=== PATIENT | female | born 2000 | race Caucasian/White ===

== ENCOUNTER 2019-04-30 11:17 | Observation (INO) | payer OTHER, BC ==
[2019-04-27 16:32] VITALS: BMI 17.8
[2019-04-30] VITALS (12 sets, daily range): BP systolic 101–131; BP diastolic 49–77; PULSE 66–95; RESP 9–26; Ht 162.6 cm; Wt 46.4 kg
[~2019-04-30] VITALS: Ht 162.6 cm; Wt 46.4 kg
--- NOTE | 2019-04-30 10:51 | HPN ---
Date/Time of Note Date/Time of Note DATE: 04/30/19 TIME: 10:51 Interval H&P Admission Note Pt. seen H&P reviewed: No system changes GRAYSON HARO MD Apr 30, 2019 10:51
[~2019-04-30 11:17] MED LIST: CEFAZOLIN 2 GM/50 ML (PMX) 50 ML IVPB ONE; LACTATED RINGER'S 1,000 ML IV ONE
[2019-04-30] MEDS ORDERED: THROMBIN 5000 UNIT VIAL ONE (11:25)
[2019-04-30] MEDS ORDERED: GELATIN SIZE 100 SPONGE ONE (11:25)
[2019-04-30] MEDS ORDERED: POLYMYXIN/BACITRACIN 1L IRRIG ONE (11:25)
[2019-04-30] MEDS ORDERED: BUPIVACAINE 0.5%/EPI (SDV) 30 ML INJ ONE (11:25)
--- NOTE | 2019-04-30 11:31 | PREAC ---
Date/Time of Note Date/Time of Note DATE: 04/30/19 TIME: 11:30 Anesthesia Eval and Record Evaluation Time Pre-Procedure Interview DATE: 04/30/19 TIME: 11:30 Age 18 Sex female NPO: 8 hrs Preoperative diagnosis L5-S1 HNP Planned procedure L5-S1 microdiscectomy Past Medical History Past Medical History: None Surgery & Anesthesia Issues No known issue Meds Anticoagulation: No Beta Justino within 24 hr: No Reason Beta Justino not given: Pt. not on B-Justino No Active Prescriptions or Reported Meds Meds reviewed: Yes Allergies Coded Allergies: No Known Allergies (Verified Allergy, Unknown, 04/27/19) Allergies Reviewed: Yes Labs/Studies Labs Reviewed: Reviewed by anesthesiologist test: Negative Pre-procedure Exam Airway: Adequate mouth opening Mallampati: Mallampati IV Teeth: Normal Lung: Normal Heart: Normal ASA Physical Status ASA physical status: 1 Emergency: None Planned Anesthetic General/MAC: ETT Planned Pain Management Parenteral pain med Pre-operative Attestations Prior to commencing anesthesia and surgery, the patient was re-evaluated, there was verification of: *The patient's identity *The results of appropriate recent lab work and preoperative vital signs *The above evaluation not changing prior to induction *Anesthetic plan, risk benefits, alternative and complications discussed with patient/family; questions answered; patient/family understands, accepts and wishes to proceed. FRITZ LOPEZ MD Apr 30, 2019 11:31
[2019-04-30] MEDS ORDERED: PROPOFOL 20 ML ONE (11:40)
[2019-04-30] MEDS ORDERED: SUCCINYLCHOLINE CHLORIDE 100 MG/5 ML SYG IV ONE (11:40)
[2019-04-30] MEDS ORDERED: GLYCOPYRROLATE 0.4 MG INJ ONE (11:40)
[2019-04-30] MEDS ORDERED: MEPERIDINE 100 MG INJ ONE (11:40)
[2019-04-30] MEDS ORDERED: LIDOCAINE 2% (SDV) 5 ML INJ ONE (11:40)
[2019-04-30] MEDS ORDERED: ROCURONIUM 50 MG INJ ONE (11:40)
[2019-04-30] MEDS ORDERED: NEOSTIGMINE 3 MG/3 ML SYRINGE ONE (11:40)
[2019-04-30] MEDS ORDERED: CEFAZOLIN 1 GM INJ ONE (12:41)
[2019-04-30] MEDS ORDERED: ONDANSETRON 4 MG INJ ONE (12:41)
[2019-04-30] MEDS ORDERED: METOCLOPRAMIDE 10 MG INJ ONE (12:41)
[2019-04-30] MEDS ORDERED: ONDANSETRON 4 MG INJ IV PRN ×2 (13:30→15:00)
[2019-04-30] MEDS ORDERED: HYDROmorphONE 1 MG/5 ML IV SYRINGE IV PRN ×3 (13:30)
[2019-04-30] MEDS ORDERED: OXYCODONE/ACETAMINOPHEN (5/325) TAB PO PRN ×2 (13:30)
[2019-04-30] MEDS ORDERED: MIDAZOLAM 1 MG/ML 2 ML INJ IV PRN (13:30)
[2019-04-30] MEDS ORDERED: MEPERIDINE 25 MG INJ IV PRN (13:30)
[2019-04-30] MEDS ORDERED: METOCLOPRAMIDE 10 MG INJ IV PRN (13:30)
[2019-04-30] MEDS ORDERED: FENTAnyl 50 MCG/ML VIAL IV PRN ×2 (13:30)
[2019-04-30] MEDS ORDERED: DIPHENHYDRAMINE 50 MG INJ IV PRN (13:30)
[2019-04-30] MEDS ORDERED: BETAMET NA PHOS/AC(6 MG/ML) 5ML INJ ONE (14:11)
--- NOTE | 2019-04-30 14:35 | OPR ---
Date/Time of Note Date/Time of Note DATE: 04/30/19 TIME: 14:32 Operative Report Free Text/Dictation DATE OF OPERATION: 04/30/2019 PREOPERATIVE DIAGNOSES: Left sided L5-S1 disk herniation with S1 radiculopathy POSTOPERATIVE DIAGNOSES: Left sided L5-S1 disk herniation with S1 radiculopathy OPERATION PERFORMED: Left L5-S1 microdiscectomy SURGEON: Grayson Haro MD FISH NET STRINGER: MARCO Portillo ANESTHESIA: General endotracheal ESTIMATED BLOOD LOSS: 15 mL SURGICAL INDICATION: The patient is a 18 year-old female who presents with a history of left lower extremity pain and weakness. She was found to have a disc herniation which correlated well with her symptoms. The patient had failed conservative treatment. Risks, benefits, and alternatives to microdiscectomy were explained to the patient and they wished to proceed. Risks explained included but were not exclusive of bleeding, infection, cauda equina syndrome, nerve injury, dural tear, iatrogenic instability, recurrent disc herniation, fracture, vascular injury, bowel injury, stroke, heart attack and pulmonary embolism. DESCRIPTION OF TECHNIQUE: The patient was identified in the preoperative area and taken to the operating room. Rapid induction of general endotracheal anesthesia was performed. The patient was given 2 g of cefazolin for prophylaxis. The patient was then placed in the prone position on the Feng frame on a Alex flat top table with all prominences well padded. The back was prepped and draped in the usual sterile manner. Using a spinal needle and intraoperative fluoroscopy, the appropriate level was clearly identified (L5- S1). The skin was injected using 0.5% Marcaine with epinephrine. Longitudinal midline incision was then created using a 10 blade. Further dissection through soft tissue was performed using electrocautery down to the spinous processes. The dissection was taken down the left side of the lamina and over the facet joint capsule. A self-retaining retractor was applied. Again, intraoperative fluoroscopy confirmed the appropriate level. The microscope was brought into use for microdissection. A small portion of the caudal aspect of the cephalad lamina and medial facet was resected using a high-speed bur. A series of Kerrison rongeurs were then used to resect the ligamentum flavum. The left S1 pedicle was identified using a naeem. The dura and traversing nerve root were both directly visualized. These were retracted gently in a medial direction. Immediately, the extruded disc fragment was noted. The pseudo anulus was incised using an 15 blade. Several loose fragments of disk were removed. These were removed back to a stable portion of the disk. A nerve hook and a series of pituitaries were used to ensure removal of all loose fragments. The disk space was further pressurized using a using normal saline through a syringe to ensure that no loose fragments remained behind. Palpation with a ball-tip probe did not reveal any further stenosis. The traversing left S1 nerve root was noted to be significantly decompressed. Meticulous attention was paid towards hemostasis using FloSeal. Care was taken to remove all FloSeal prior to wound closure. The fascia was then closed using 0 Vicryl in an interrupted fashion. Subcutaneous tissue was closed using 2-0 Vicryl in an interrupted fashion. The skin was closed using a running 4-0 Monocryl stitch. The wound was dressed using Dermabond and a 4x4 sterile gauze. The patient was returned to the supine position. He was extubated immediately postoperatively and taken to the recovery room in stable condition. COMPLICATIONS: None. Procedure Date: Apr 30, 2019 Preoperative Diagnosis Left sided L5-S1 disk herniation with S1 radiculopathy Postoperative Diagnosis Left sided L5-S1 disk herniation with S1 radiculopathy Operation/Procedure Performed Left L5-S1 microdiscectomy Surgeon see signature line Forder Operator MARCO Portillo Anesthesia Type: general Estimated Blood Loss: 10 - 50 ml's Transfusion none Specimen L5-S1 disk Grafts/Implants none Complications none Pt Condition Post Procedure: stable Disposition: PACU Procedure Description DESCRIPTION OF TECHNIQUE: The patient was identified in the preoperative area and taken to the operating room. Rapid induction of general endotracheal anesthesia was performed. The patient was given 2 g of cefazolin for p rophylaxis. The patient was then placed in the prone position on the Feng frame on a Alex flat top table with all prominences well padded. The back was prepped and draped in the usual sterile manner. Using a spinal needle and intraoperative fluoroscopy, the appropriate level was clearly identified (L5- S1). The skin was injected using 0.5% Marcaine with epinephrine. Longitudinal midline incision was then created using a 10 blade. Further dissection through soft tissue was performed using electrocautery down to the spinous processes. The dissection was taken down the left side of the lamina and over the facet joint capsule. A self-retaining retractor was applied. Again, intraoperative fluoroscopy confirmed the appropriate level. The microscope was brought into use for microdissection. A small portion of the caudal aspect of the cephalad lamina and medial facet was resected using a high-speed bur. A series of Kerrison rongeurs were then used to resect the ligamentum flavum. The left S1 pedicle was identified using a naeem. The dura and traversing nerve root were both directly visualized. These were retracted gently in a medial direction. Immediately, the extruded disc fragment was noted. The pseudo anulus was incised using an 15 blade. Several loose fragments of disk were removed. These were removed back to a stable portion of the disk. A nerve hook and a series of pituitaries were used to ensure removal of all loose fragments. The disk space was further pressurized using a using normal saline through a syringe to ensure that no loose fragments remained behind. Palpation with a ball-tip probe did not reveal any further stenosis. The traversing left S1 nerve root was noted to be significantly decompressed. Meticulous attention was paid towards hemostasis using FloSeal. Care was taken to remove all FloSeal prior to wound closure. The fascia was then closed using 0 Vicryl in an interrupted fashion. Subcutaneous tissue was closed using 2-0 Vicryl in an interrupted fashion. The skin was closed using a running 4-0 Monocryl stitch. The wound was dressed using Dermabond and a 4x4 sterile gauze. The patient was returned to the supine position. He was extubated immediately postoperatively and taken to the recovery room in stable condition. COMPLICATIONS: None. GRAYSON HARO MD Apr 30, 2019 14:35
--- NOTE | 2019-04-30 14:39 | PDOCDIS ---
Discharge Instructions CONDITION [id number] Patient Condition: [id number] Good HOME CARE INSTRUCTIONS: [id number] Diet Instructions: [id number] Regular ACTIVITY: [id number] Activity Restrictions: [id number] Avoid heavy lifting Avoid Heavy Housework [id number] Bathing Restrictions: [id number] Shower FOLLOW UP/APPOINTMENTS Follow-up Plan Follow-up with Dr. Haro in 2 weeks GRAYSON HARO MD Apr 30, 2019 14:39
[2019-04-30] MEDS ORDERED: ACETAMINOPHEN 325 MG TAB PO PRN (15:00)
[2019-04-30] MEDS ORDERED: NACL 0.9% 3 ML SYG IV SCH (15:00)
[2019-04-30] MEDS ORDERED: HYDROCODONE/APAP (5/325) TAB PO PRN ×2 (15:00)
[2019-04-30] MEDS ORDERED: AL HYDROX/MG HYDROX/SIMETH 30 ML CUP PO PRN (15:00)
[2019-04-30] MEDS ORDERED: PROCHLORPERAZINE 10 MG TAB PO PRN (15:00)
[2019-04-30] MEDS ORDERED: NALOXONE (0.4 MG/ML) INJ IV PRN (15:00)
[2019-04-30] MEDS: FENTAnyl 50 MCG/ML VIAL IV PRN ×2 (15:02→15:13)
--- NOTE | 2019-04-30 16:10 | PAC ---
Date/Time of Note Date/Time of Note DATE: 04/30/19 TIME: 16:09 Post-Anesthesia Notes Post-Anesthesia Note Last documented vital signs Vital Signs Date Temp Pulse Resp B/P (MAP) Pulse Ox O2 O2 Flow FiO2 Time Delivery Rate 04/30/19 72 13 105/61 97 Room Air 15:29 (76) 04/30/19 98.7 14:59 Activity: WNL Respiratory function: WNL Cardiovascular function: WNL Mental status: Baseline Pain reasonably controlled: Yes Hydration appropriate: Yes Nausea/Vomiting absent: Yes Comments BT: 98.6 FRITZ LOPEZ MD Apr 30, 2019 16:10
[2019-05-01] MEDS ORDERED: DOCUSATE SODIUM 100 MG CAP PO SCH (09:00)
== END 2019-04-30 17:30 | disposition home or self-care (01) ==
LOC: SDS 11:17 → REC 14:38 → SDS 14:38 → REC 17:33
PROVIDERS: ADMIT Orthopaedic Surgery; ATTEND Orthopaedic Surgery
DX: M51.17 Intervertebral disc disorders with radiculopathy, lumbosacral region (principal); M54.5 Low back pain
CPT/HCPCS: 63030; 72050; 84703; 88304; 97161; J0690; J0702; J1200; J2175; J2405; J2710; J2765; J3010; Z7500; Z7512; Z7610; 99217; G0378